=== PATIENT | female | born 1990 | race Two or more races ===

== ENCOUNTER 2017-02-06 11:14 | Emergency (ER) | payer OTHER ==
[~2017-02-06] VITALS: Ht 160 cm; Wt 84.4 kg
[2017-02-06] MEDS ORDERED: IV NS 0.9% 1,000 ML BAG IV ONE (12:30)
[2017-02-06] MEDS ORDERED: ALBUTEROL FS 2.5 MG/3 ML VIAL.NEB NEB ONE (12:30)
[2017-02-06] MEDS ORDERED: IPRATROPIUM NEB FS 0.5 MG/2.5 ML AMPUL.NEB NEB ONE (12:30)
--- NOTE | 2017-02-06 12:36 | NUR ---
LAC #20 IV ACCESS
--- NOTE | 2017-02-06 12:36 | NUR ---
RT CALLED [facility] BREATHING TREATMENT
[2017-02-06] MEDS ORDERED: IPRATROPIUM NEB FS 0.5 MG/2.5 ML AMPUL.NEB ONE (12:43)
[2017-02-06] MEDS ORDERED: ALBUTEROL FS 2.5 MG/3 ML VIAL.NEB ONE (12:43)
--- NOTE | 2017-02-06 12:52 | NUR ---
VERBAL ORDER CHAU WILSON 65 BS GIVEN OJ WILL RECHECK
[2017-02-06 13:15] VITALS: BP 121/63
--- NOTE | 2017-02-06 13:37 | NUR ---
Patient discharged to home in stable condition. Written and verbal after care instructions given. Patient verbalizes understanding of instruction.
--- NOTE | 2017-02-06 13:37 | NUR ---
IV removed. Catheter intact and site benign. Pressure and 4x4 applied to site. No bleeding noted.
== END 2017-02-06 13:38 | disposition home or self-care (01) ==
LOC: ER 11:16
DX: O99.513 Diseases of the respiratory system complicating pregnancy, third trimester (principal); J20.9 Acute bronchitis, unspecified; O24.419 Gestational diabetes mellitus in pregnancy, unspecified control; O9A.213 Injury, poisoning and certain other consequences of external causes complicating pregnancy, third trimester; S29.012A Strain of muscle and tendon of back wall of thorax, initial encounter; Z3A.30 30 weeks gestation of pregnancy; X58.XXXA Exposure to other specified factors, initial encounter; Y93.89 Activity, other specified; Y92.89 Other specified places as the place of occurrence of the external cause; Y99.8 Other external cause status
CPT/HCPCS: 82962-TC; A4606; J7030; Z7610

== ENCOUNTER 2017-04-06 02:46 | Emergency (ER) | payer MEDICAID ==
[~2017-04-06] VITALS: Ht 160 cm; Wt 90.3 kg
[2017-04-06 02:50] VITALS: BP 128/75
== END 2017-04-06 06:14 | disposition home or self-care (01) ==
LOC: ER 02:50
DX: O26.893 Other specified pregnancy related conditions, third trimester (principal); K08.89 Other specified disorders of teeth and supporting structures; Z3A.38 38 weeks gestation of pregnancy
CPT/HCPCS: A4606; A6402; J3490; Z7610

== ENCOUNTER 2022-03-29 16:26 | Emergency (ER) | payer OTHER ==
[~2022-03-29] VITALS: Ht 160 cm; Wt 71.7 kg
[2022-03-29 16:49] VITALS: BP 122/65
--- NOTE | 2022-03-29 17:38 | NUR ---
ASSISTED JENNY SNYDER DURING PELVIC EXAM
[2022-03-29] MEDS ORDERED: diphenhydrAMINE HCL 25 MG CAPSULE PO ONE (18:00)
[2022-03-29] MEDS ORDERED: diphenhydrAMINE HCL 50 MG CAPSULE ONE (18:35)
[2022-03-29 18:38] LABS: BILIRUBIN,URINE NEGATIVE (NEGATIVE); COLOR,URINE YELLOW (YELLOW); LEUKOCYTE ESTERASE ,URINE NEGATIVE (NEGATIVE); NITRITE, URINE NEGATIVE (NEGATIVE); PROTEIN,URINE NEGATIVE (NEGATIVE); UGLUCOSE NEGATIVE (NEGATIVE); UROBILINOGEN,URINE 0.2 EU/dL (0.2)
[2022-03-29 18:48] LABS: BACTERIA,URINE RARE /HPF (None Seen); WBC,URINE 0-2 /HPF (0-3)
[2022-03-29 18:49] LABS: MUCUS,URINE Moderate /LPF (None Seen)
[2022-03-29] MEDS ORDERED: SULF1TAB48 PO (18:56)
--- NOTE | 2022-03-29 19:32 | NUR ---
Patient discharged to home in stable condition. Written and verbal after care instructions given. Patient verbalizes understanding of instruction.
== END 2022-03-29 19:36 | disposition home or self-care (01) ==
LOC: ER 16:36
DX: L73.9 Follicular disorder, unspecified (principal); N76.0 Acute vaginitis; Z87.440 Personal history of urinary (tract) infections; Z60.2 Problems related to living alone; Z79.899 Other long term (current) drug therapy
CPT/HCPCS: 99284; 84703; 81001; 87210; 82962 ×2; Q0163